=== PATIENT | male | born 1980 | race Caucasian/White ===

== ENCOUNTER 2017-01-13 19:25 | Emergency (ER) ==
[2017-01-13] MEDS ORDERED: VENTOLIN HFA INH ONE (20:56)
[2017-01-13] MEDS ORDERED: TESSALON PO ONE (20:57)
[2017-01-13] MEDS ORDERED: ZITHROMAX PO ONE (20:57)
[2017-01-13] MEDS ORDERED: PREDNISONE PO ONE (20:58)
--- NOTE | 2017-01-13 21:00 | PROVIDER DOCUMENTATION ---
HPI-Respiratory General - General Chief Complaint: Flu Symptoms Stated Complaint: FLU/COLD SX Time Seen by Provider: 01/13/17 20:49 Allergies/Adverse Reactions: Patient Allergies Allergy/AdvReac Type Severity Reaction Status Date / Time No Known Allergies Allergy Verified 01/13/17 20:36 Home Medications: Home Medication List Medication Instructions Recorded Confirmed Last Taken Type Azithromycin [Zithromax] 250 mg PO DAILY #4 tablet 01/13/17 Unknown Rx Benzonatate [Tessalon] 100 mg PO TID PRN PRN #20 capsule 01/13/17 Unknown Rx Hydrocodone Bit/Homatrop Me-Br 5 ml PO Q6HR PRN 01/13/17 01/13/17 01/13/17 14: 00 History [Hydrocodone-Homatropine Syrup] Methylprednisolone [Medrol Dosepak] 4 mg PO DIRECTED #1 package 01/13/17 Unknown Rx - History of Present Illness-Resp Nature of Presenting Problem: 36 year old WM presents with c/o sore throat, fever, max temp 102, cough, nonproductive, body aches and pains for 5 days. pt reports he was evaluated at an urgent care 3 days ago and given cough syrup, told it was viral. pt reports he has had increased wheezing and shortness of breath. pt reports throat pain is sharp, exacerbated by eating, drinking. pt reports chest pain with coughing. pt reports taking nyquil, motrin and tylenol. Review of Systems - Adult - REVIEW OF SYSTEMS - ADULT Constitutional: reports: see HPI, chills, fever. denies: fatique Eyes: reports: no symptoms reported. denies: discharge, blurred vision, double vision, redness Ears, Nose, Mouth & Throat: reports: see HPI, throat pain, throat swelling. denies: ear discharge, ear pain Cardiovascular: reports: no symptoms reported. denies: chest pain, palpitations , syncope Respiratory: reports: see HPI, cough, shortness of breath, wheezing. denies: chronic cough, dyspnea on exertion, excessive sputum production, hemoptysis, pleurisy Gastrointestinal: reports: no symptoms reported. denies: abdominal pain, diarrhea, nausea, poor appetite, vomiting Genitourinary: reports: no symptoms reported. denies: dysuria, hematuria, urgency Musculoskeletal: reports: no symptoms reported Integumentary: reports: no symptoms reported. denies: hives, itching, rash, skin sores/ulcer Neurological: reports: no symptoms reported. denies: ataxia, slurred speech, tremors Psychiatric: reports: no symptoms reported Endocrine: reports: no symptoms reported Hematologic/Lymphatic: reports: no symptoms reported Allergic/Immunologic: reports: no symptoms reported. denies: frequent infections All Other Systems: Reviewed and Negative Past History - Adult - PAST MEDICAL HISTORY-ADULT Review of Records: reports: Old Records Reviewed, Nursing Assessment Review, Medications Reviewed, Social history reviewed & non-contributory. Major Childhood Illnesses: reports: denies history Cardiovascular: reports: denies history Respiratory: reports: denies history Gastrointestinal: reports: denies history Obstetrical/Gynecological: reports: denies history Genitourinary: reports: denies history Musculoskeletal: reports: denies history Neurological: reports: denies history Endocrine/Immune: reports: denies history Other Conditions: reports: denies history - PRIOR SURGERIES/PROCEDURES Surgical/Procedure History: reports: none - PRIOR HOSPITALIZATIONS Prior Hospitalizations: reports: none - IMMUNIZATION STATUS Childhood Immunizations: UTD (TD utd) - FAMILY HISTORY Family History: reviewed, not pertinent - SOCIAL HISTORY Smoking: cigarettes Provider spent 3-5 mins advising pt. on dangers of tobacco.: Discussed manners to quit use, and f/u contacts for add'l counseling. Substance Use: none/never Alcohol Use Frequency: never Physical Exam-General - PHYSICAL EXAM-ADULT Initial Vital Signs Reviewed: Yes - CONSTITUTIONAL General Appearance: appears well, alert, mild distress. negative: no apparent distress, moderate distress, severe distress, lethargic, slow to respond, obtunded, combative - EYES Eyes: pink conjunctivae. negative: conjuctival exudate, pale conjunctivae, sclera injected, scleral icterus, subconjunctival hemorrhage - HEAD, EARS, NOSE, MOUTH & THROAT HENMT: normocephalic/atraumatic, moist mucous membranes, normal ENT inspection, TMs normal, pharyngeal erythema, tonsillar exudate. negative: pharynx normal, frontal tenderness, maxillary tenderness - NECK Neck: non-tender, full range of motion, supple, normal inspection. negative: C- spine tenderness, limited range of motion, tender lateral, tender midline - RESPIRATORY Respiratory: chest non-tender, lungs clear, normal breath sounds, no pleuratic chest pain, no respiratory distress, no accessory muscle use, wheezing ( occassional faint wheeze). negative: respiratory distress, decreased breath sounds, accessory muscle use, crackles, rales, rhonchi, stridor - CARDIOVASCULAR Cardiovascular: normal peripheral pulses, regular rate, rhythm, tachycardia - CHEST (BREASTS) Chest/Breast: deferred - GASTROINTESTINAL (ABDOMEN) Abdominal Exam: normal bowel sounds, non tender, soft - GENITOURINARY Male Genitalia: deferred Rectal Exam: deferred Hemoccult Exam: deferred - LYMPHATIC Lymphatic: no adenopathy. negative: cervical node tenderness - MUSCULOSKELETAL Back Exam: normal inspection, no CVA tenderness, no vertebral tenderness. negative: CVA tenderness, decreased range of motion, swelling, vertebral tenderness Extremity: normal range of motion, non-tender, normal gait, normal inspection, no pedal edema, no calf tenderness, normal capillary refill Peripheral Pulses: radial (R): 3+, radial (L): 3+, dorsalis-pedis (R): 3+, dorsalis-pedis (L): 3+ - SKIN Integumentary: normal color, normal turgor, warm/dry - NEUROLOGIC Neurologic: grossly normal, no motor/sensory deficits - PSYCHIATRIC Psych/Mental Status: normal mood/affect, normal thought content, normal thought process, oriented x 3 Progress - PLAN OF CARE/RESULTS Progress/Plan/Lab Results: Orders Category Date Time Status CHEST-2 VIEWS [RAD] Stat Exams 01/13/17 19:42 Taken DIRECT STREP Stat Lab 01/13/17 19:40 Completed Flu Swab [INFLUENZA SCREEN A/B] Stat Lab 01/13/17 19:40 Completed Albuterol Sulfate Inhaler [Ventolin Hfa] Med 01/13/17 20:56 Discontinued 2 puff INH NOW ONE Azithromycin [Zithromax] Med 01/13/17 20:57 Discontinued 500 mg PO NOW ONE Benzonatate [Tessalon] Med 01/13/17 20:57 Discontinued 200 mg PO NOW ONE Prednisone Med 01/13/17 20:58 Discontinued 60 mg PO NOW ONE MDI Treatments Stat Oth 01/13/17 20:56 Active Vital Signs - 24 hr 01/13/17 01/13/17 19:38 21:19 Temperature 99.7 F H 98.2 F Pulse Rate 112 H 96 H Respiratory 17 18 Rate Blood Pressure 130/73 110/72 O2 Sat by Pulse 98 98 Oximetry - XRAY 1 XRAY Study: Chest Impression: Normal Departure - Departure Time of Disposition Order: 20:58 DIAGNOSIS: Bronchitis Disposition: HOME 01 Certified Medical Emergency: Emergent Condition: Stable Additional Instructions: ED Follow Up Instructions: You have been treated by a care provider in the Emergency Department. These instructions are being provided to you so you can have an understanding of how to care for yourself upon discharge. Upon discharge from the Emergency Department, you are responsible for making arrangements for follow-up care by a physician of your choice. Take all prescribed medications as directed. Return to the Emergency Department immediately for any new or worsening symptoms. You may call the Physician Referral phone number at [phone] to obtain a list of Physicians who are taking new patients. Prescriptions: Methylprednisolone [Medrol Dosepak] 4 mg PO DIRECTED #1 package Benzonatate [Tessalon] 100 mg PO TID PRN PRN #20 capsule PRN Reason: Cough Azithromycin [Zithromax] 250 mg PO DAILY #4 tablet Referrals: None,PCP [Primary Care Provider] - Forms: Return to School/Parent Work Instructions: Acute Bronchitis, [id number] Attestation - Physician/ RASHAUN Attestation Patient care was provided by Advanced Practice Provider:: Yes Advanced Practice Provider:: Susan Tesfaye Advanced Practice Provider documentation review:: The Mid-level provider documentation, treatment plan and medical decision making was reviewed by the physician who agrees with all treatment and medical decision making by the P.
[2017-01-13 21:20] VITALS: BP 110/72
--- NOTE | 2017-01-14 08:18 | Diag Imaging Result Document ---
PROCEDURE NAME: CHEST-2 VIEWS - 01/13/2017 FRONTAL AND LATERAL CHEST, TWO VIEWS: FINDINGS: The lungs are well expanded. The heart is not enlarged. The vessels are not distended. No pneumonia. No pleural effusions. IMPRESSION: No acute abnormality.
== END 2017-01-13 21:22 | disposition home or self-care (01) ==
LOC: ED 19:25
DX: J40 Bronchitis, not specified as acute or chronic (principal); J02.9 Acute pharyngitis, unspecified; R50.9 Fever, unspecified; R05 Cough; R06.2 Wheezing; R06.02 Shortness of breath; R07.89 Other chest pain; R22.1 Localized swelling, mass and lump, neck; R00.0 Tachycardia, unspecified; F17.210 Nicotine dependence, cigarettes, uncomplicated; Z71.6 Tobacco abuse counseling
CPT/HCPCS: 71020; 87081; 87430; 87804; J7512